=== PATIENT | female | born 1985 | race Caucasian/White ===

== ENCOUNTER 2017-05-15 13:35 | Emergency (ER) | payer SELFPAY ==
[~2017-05-15] VITALS: Ht 154.9 cm; Wt 53.5 kg
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
[2017-05-15] MEDS ORDERED: PNV1TABL59 PO (13:47)
--- NOTE | 2017-05-15 14:30 | NUR ---
Patient discharged to home in stable condition. Written and verbal after care instructions given. Patient verbalizes understanding of instruction.
[2017-05-15 15:36] VITALS: BP 110/76
== END 2017-05-15 15:37 | disposition home or self-care (01) ==
LOC: ER 13:38
DX: O9A.212 Injury, poisoning and certain other consequences of external causes complicating pregnancy, second trimester (principal); S13.9XXA Sprain of joints and ligaments of unspecified parts of neck, initial encounter; Z88.0 Allergy status to penicillin; Z88.1 Allergy status to other antibiotic agents; Z90.89 Acquired absence of other organs; Z3A.22 22 weeks gestation of pregnancy; V49.50XA Passenger injured in collision with unspecified motor vehicles in traffic accident, initial encounter; Y93.89 Activity, other specified; Y92.89 Other specified places as the place of occurrence of the external cause; Y99.9 Unspecified external cause status
CPT/HCPCS: 99283; A4606; Z7610